=== PATIENT | male | born 1975 | race Two or more races ===

== ENCOUNTER 2017-01-13 15:30 | Emergency (ER) | payer OTHER ==
[~2017-01-13] VITALS: Ht 182.9 cm; Wt 105.0 kg
[2017-01-13] MEDS ORDERED: BACITRACIN ZINC OINT 500U/GM, 0.9 GM ONE (16:23)
[2017-01-13 17:20] VITALS: BP 156/118
== END 2017-01-13 17:45 | disposition home or self-care (01) ==
LOC: ED 17:39
DX: S80.02XA Contusion of left knee, initial encounter (principal); S80.11XA Contusion of right lower leg, initial encounter; S80.12XA Contusion of left lower leg, initial encounter; Y04.1XXA Assault by human bite, initial encounter; Y93.72 Activity, wrestling; Y92.810 Car as the place of occurrence of the external cause; Y99.8 Other external cause status
CPT/HCPCS: 99284